=== PATIENT | female | born 1995 | race African-American/Black ===

== ENCOUNTER 2024-04-25 12:41 | Emergency (ER) | payer OTHER ==
[~2024-04-25] VITALS: Ht 157.5 cm; Wt 49.0 kg
[2024-04-25] MEDS ORDERED: IBUP-1955 PO (14:32)
[2024-04-25] MEDS ORDERED: CYCL5TAB PO (14:32)
[2024-04-25] MEDS ORDERED: LIDO30AD10 TP (14:32)
[2024-04-25 14:52] VITALS: BP 105/78; TEMP 98.5; O2SAT 99
== END 2024-04-25 14:53 | disposition home or self-care (01) ==
LOC: ER 12:41
DX: S13.4XXA Sprain of ligaments of cervical spine, initial encounter (principal); S16.1XXA Strain of muscle, fascia and tendon at neck level, initial encounter; S46.911A Strain of unspecified muscle, fascia and tendon at shoulder and upper arm level, right arm, initial encounter; V43.52XA Car driver injured in collision with other type car in traffic accident, initial encounter; Y93.89 Activity, other specified; Y92.488 Other paved roadways as the place of occurrence of the external cause; Y99.8 Other external cause status